=== PATIENT | male | born 1955 | race Caucasian/White ===

== ENCOUNTER 2021-10-16 13:13 | Outpatient (REF) | payer MEDICARE, OTHER, SELFPAY ==
--- NOTE | ~2021-10-16 | CT_ITS ---
EXAMINATION: CT HEAD AND CT SINUS WITHOUT CONTRAST CLINICAL INFORMATION: Sinusitis. COMPARISON: None TECHNIQUE: 5 mm thin axial and reformatted 2 mm thin sagittal and coronal images of brain were obtained without contrast. Subsequently axial 2 mm thin and reformatted 2 mm thin sagittal and coronal images of sinuses were obtained. DLP: 979 mGy-cm FINDINGS: BRAIN: There is no acute intra-axial, extra-axial bleed, masses or midline shift. There is no acute infarct in evolution. There is no edema. The lateral ventricles are symmetrical in size and configuration without enlargement. The taylor to white matter differentiation is maintained normal. Bone windows reveal no calvarial abnormality. There is no scalp soft tissue abnormality. There is mild mucoperiosteal thickening right maxillary and right sphenoid sinuses. Rest of the paranasal sinuses and mastoid air cells are well aerated. SINUSES: There is normal aeration of bilateral paranasal sinuses with mild mucoperiosteal thickening right maxillary and bilateral dependent sphenoid sinuses. The bony sinus casillas are intact. Bilateral ostiomeatal complex and frontoethmoidal recess are widely patent. The lamina papyracea is intact and cribriform plate are symmetrical and normal. There is mild deviation of nasal septum to the right with jacinta bullosa of bilateral middle turbinates. Nasopharyngeal airway is widely patent. Visualized bilateral mastoid sinuses are clear. Bilateral internal and external auditory canals are symmetric and normal. CT/CT head/brain wo con IMPRESSION: No acute intracranial process seen. Minimal mucoperiosteal thickening bilateral sphenoid sinuses and right maxillary sinus. The drainage pathways are patent. Jacinta bullosa bilateral middle turbinates.
== END 2021-10-16 13:14 | disposition home or self-care (01) ==
LOC: HO.CT 13:13
PROVIDERS: Visit Provider Family Medicine
DX: R51.9 Headache, unspecified (principal)
CPT/HCPCS: 70450; 70486